=== PATIENT | male | born 1980 | race Caucasian/White ===

== ENCOUNTER 2020-03-09 21:52 | Emergency (ER) | payer SELFPAY ==
--- NOTE | 2020-03-09 22:15 | RAD REPORT ---
EXAM DESCRIPTION: RAD - Chest Single View - 03/09/2020 10:05 pm CLINICAL HISTORY: CHEST PAIN Chest pain. COMPARISON: Chest Pa And Lat (2 Views) dated 01/30/2019; Chest Pa And Lat (2 Views) dated 11/21/2017; C HEST SINGLE VIEW dated 10/20/2013; CHEST PA AND LAT 2 VIEW dated 05/12/2011CHEST SINGLE VIEW dated 07/07/2008 FINDINGS: Portable technique limits examination quality. The lungs are grossly clear. The heart is normal in size. No displaced fractures. IMPRESSION: No acute intrathoracic process suspected.
[2020-03-09 22:31] LABS: Absolute Lymphocytes (CBC) 3.2 K/uL (0.7-4.9); Basophils % 0.6 % (0-1.3); Hematocrit 50.1 % (39.6-49.0); MPV 8.9 fL (7.6-11.3); RBC Red Blood Cell Count 5.46 M/uL (4.33-5.43)
[2020-03-09] MEDS ORDERED: LORazepam 2 MG/ML VIAL ONE (22:34)
[2020-03-09 22:55] LABS: Protime INR 0.89
[2020-03-09 22:59] LABS: Barbiturates NEGATIVE (NEGATIVE); Benzodiazepines NEGATIVE (NEGATIVE); Cocaine NEGATIVE (NEGATIVE); METHAMPHETAM NEGATIVE (NEGATIVE); Methadone NEGATIVE (NEGATIVE); Opiates NEGATIVE (NEGATIVE); Phencyclidine NEGATIVE (NEGATIVE); THC Cannibis NEGATIVE (NEGATIVE)
[2020-03-09 23:02] LABS: ALT/SGPT 48 U/L (12-78); AST/SGOT 47 U/L (15-37); Alkaline Phosphatase 95 U/L (45-117); BUN Blood Urea Nitrogen 7 mg/dL (7-18); Bicarbonate 20 mmol/L (21-32); Bilirubin Direct 0.1 mg/dL (0-0.2); Bilirubin Total 0.4 mg/dL (0.2-1.0); Glucose Level 119 mg/dL (74-106); Magnesium 2.4 mg/dL (1.8-2.4); NT PRO-BNP 150 pg/mL (<125); Potassium 3.3 mmol/L (3.5-5.1); Protein, Total 7.4 g/dL (6.4-8.2); Sodium Level 145 mmol/L (136-145); Troponin (Emerg Dept Use Only) < 0.02 ng/mL (0.0-0.045)
--- NOTE | 2020-03-10 00:14 | ER ---
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 Coronavirus screen: Client denies travel out of the [place] in the last 14 days. At this time, the client does not indicate any symptoms associated with coronavirus-19. Ebola Screen: No symptoms or risks identified at this time. Initial Sepsis Screen: Does the patient meet any 2 criteria? No. Patient's initial sepsis screen is negative. Does the patient have a suspected source of infection? No. Patient's initial sepsis screen is negative. Risk Assessment: Do you want to hurt yourself or someone else? Patient reports no desire to harm self or others. Onset of symptoms was March 09, 2020 at 20:00. 21:58 Method Of Arrival: Wheelchair lp1 21:58 Acuity: KAYLEE 3 lp1 Historical: - Allergies: 22:00 No Known Allergies; lp1 - Home Meds: 22:00 None [Active]; lp1 - PMHx: 22:00 None; lp1 - PSHx: 22:00 Appendectomy; lp1 - Immunization history:: Adult Immunizations up to date. - Social history:: Smoking status: Patient reports the use of cigarette tobacco products, smokes one-half pack cigarettes per day, Patient uses alcohol, on a daily basis. claims drinking about a 6 pack/day. Screenin:00 Abuse screen: Denies threats or abuse. Denies injuries from another. Nutritional lp1 screening: No deficits noted. Tuberculosis screening: No symptoms or risk factors identified. 03/10 00:11 Fall Risk IV access (20 points). mg2 Assessment: 03/09 22:20 General: Appears in no apparent distress. comfortable, Behavior is calm, cooperative. mg2 Pain: Complains of pain in chest Pain does not radiate. Pain began gradually. Neuro: Level of Consciousness is awake, alert, obeys commands, Oriented to person, place, time, situation. Cardiovascular: Capillary refill < 3 seconds Patient's skin is warm and dry. Respiratory: Airway is patent Respiratory effort is even, unlabored, Respiratory pattern is regular, symmetrical. GI: No signs and/or symptoms were reported involving the gastrointestinal system. : No signs and/or symptoms were reported regarding the genitourinary system. EENT: No signs and/or symptoms were reported regarding the EENT system. Derm: Skin is intact, is healthy with good turgor, Skin is pink, warm \T\ dry. normal. Musculoskeletal: Circulation, motion, and sensation intact. Capillary refill < 3 seconds. 03/10 00:11 Reassessment: Patient and/or family updated on plan of care and expected duration. Pain ea level reassessed. Patient is alert, oriented x 3, equal unlabored respirations, skin warm/dry/pink. 00:19 Reassessment: Patient and/or family updated on plan of care and expected duration. Pain ea level reassessed. Patient is alert, oriented x 3, equal unlabored respirations, skin warm/dry/pink. Discharge instruction given to patient, verbalized the understanding of instruction. Pt left ED ambulatory tolerating well. Vital Signs: 03/09 21:58 BP 128 / 83; Pulse 98; Resp 18; Temp 98.9(O); Pulse Ox 95% on R/A; Weight 79.38 kg (R); lp1 Pain 9/10; 03/10 00:11 BP 106 / 63; Pulse 78; Resp 18; Pulse Ox 98% on R/A; mg2 ED Course: 03/09 21:53 Patient arrived in ED. fj1 21:54 Bon Ojeda PA is PHCP. jmm 21:54 Dejon Jauregui MD is Attending Physician. jmm 22:00 Triage completed. lp1 22:00 Arm band placed on right wrist. lp1 22:00 Patient maintains SpO2 saturation greater than 95% on room air. lp1 22:01 Patient has correct armband on for positive identification. security monitor on. Pulse lp1 ox on. NIBP on. 22:10 Inserted saline lock: 18 gauge in left wrist, using aseptic technique. Blood collected. ds4 22:38 Urine Drug Screen Sent. ds4 03/10 00:09 Laz Aragon, RN is Primary Nurse. mg2 00:11 No provider procedures requiring assistance completed. mg2 00:18 IV discontinued, intact, bleeding controlled, No redness/swelling at site. Pressure ea dressing applied. Administered Medications: 03/09 22:29 Drug: Ativan 0.5 mg Route: IVP; Site: left forearm; mg2 23:00 Follow up: Response: No adverse reaction ea Outcome: 03/10 00:13 Discharge ordered by . celena 00:20 Discharged to home ambulatory. ea 00:20 Condition: stable 00:20 Discharge instructions given to patient, Instructed on discharge instructions, follow up and referral plans. Demonstrated understanding of instructions, follow-up care. 00:22 Patient left the ED. ea Signatures: Bon Ojeda PA PA jmm Pena, Laura, RN RN lp1 Terence Martinez ds4 Ceci Wan RN RN ea Laz Aragon RN RN mg2 Henry Bowling fj1
--- NOTE | 2020-03-10 00:14 | EDPHYS ---
Physician Documentation [facility] Name: James Chaney Age: 39 yrs Sex: Male : 1980 Arrival Date: 03/09/2020 Time: 21:53 Bed 5 Private MD: ED Physician Dejon Jauregui HPI: 03/09 21:59 This 39 yrs old Male presents to ER via Unassigned with complaints of Chest jm Pain. 21:59 The patient or guardian reports chest pain that is located primarily in the substernal [facility] area. 22:08 The pain does not radiate. Associated signs and symptoms: Pertinent positives:. The [facility] chest pain is described as aching, sharp. Duration: The patient or guardian reports multiple episodes, that are intermittent. Modifying factors: The symptoms are alleviated by nothing. the symptoms are aggravated by nothing. This is a 39 year old male with no chronic medical conditions that presents to the ED with complaints of left sided chest pain for the past 3 days. Pain intensified 2 hours ago. . Historical: - Allergies: 22:00 No Known Allergies; lp1 - Home Meds: 22:00 None [Active]; lp1 - PMHx: 22:00 None; lp1 - PSHx: 22:00 Appendectomy; lp1 - Immunization history:: Adult Immunizations up to date. - Social history:: Smoking status: Patient reports the use of cigarette tobacco products, smokes one-half pack cigarettes per day, Patient uses alcohol, on a daily basis. claims drinking about a 6 pack/day. ROS: 22:08 Constitutional: Negative for fever, chills, and weight loss. jmm 22:08 Respiratory: Negative for shortness of breath, cough, wheezing, and pleuritic chest pain, Abdomen/GI: Negative for abdominal pain, nausea, vomiting, diarrhea, and constipation, Neuro: Negative for headache, weakness, numbness, tingling, and seizure. 22:08 Cardiovascular: Positive for chest pain. 22:08 All other systems are negative. Exam: 21:59 ECG was reviewed by the Attending Physician. jmm 22:08 Constitutional: This is a well developed, well nourished patient who is awake, alert, jmm and in no acute distress. Head/Face: atraumatic. Eyes: EOMI, no conjunctival erythema appreciated ENT: Moist Mucus Membranes Neck: Trachea midline, Supple Chest/axilla: Normal chest wall appearance and motion. Cardiovascular: Regular rate and rhythm. No edema appreciated Respiratory: Normal respirations, no respiratory distress appreciated Abdomen/GI: Non distended, soft Back: Normal ROM Skin: General appearance color normal MS/ Extremity: Moves all extremities, no obvious deformities appreciated, no edema noted to the lower extremities Neuro: Awake and alert, normal gait 22:08 Psych: Behavior/mood is anxious. Vital Signs: 21:58 BP 128 / 83; Pulse 98; Resp 18; Temp 98.9(O); Pulse Ox 95% on R/A; Weight 79.38 kg (R); lp1 Pain 04/10; 03/10 00:11 BP 106 / 63; Pulse 78; Resp 18; Pulse Ox 98% on R/A; mg2 MDM: 03/09 21:56 Patient medically screened. [facility] 03/10 00:07 Data reviewed: vital signs, nurses notes. Counseling: I had a detailed discussion with celena the patient and/or guardian regarding: the historical points, exam findings, and any diagnostic results supporting the discharge/admit diagnosis, lab results, radiology results, the need for outpatient follow up. ED course: HEART SCORE = 0. D-dimer negative. Patient is advised to follow up with pcp and otherwise given strict return precautions. Patient understood and agrees with the plan of care. . 03/09 21:55 Order name: Basic Metabolic Panel [facility] 03/09 21:55 Order name: CBC with Diff [facility] 03/09 21:55 Order name: LFT's [facility] 03/09 21:55 Order name: Magnesium [facility] 03/09 21:55 Order name: NT PRO-BNP [facility] 03/09 21:55 Order name: PT-INR [facility] 03/09 21:55 Order name: Troponin (emerg Dept Use Only) [facility] 03/09 22:13 Order name: ETOH Level [facility] 03/09 22:13 Order name: Urine Drug Screen [facility] 03/09 22:13 Order name: D-Dimer [facility] 03/09 22:33 Order name: CBC with Automated Diff; Complete Time: 22:57 [facility] 03/09 22:40 Order name: Urine Dipstick--Ancillary (enter results) 4 03/09 22:49 Order name: Alcohol Serum/Plasma; Complete Time: 22:57 EDMS 08/ 22:57 Order name: Protime (+INR); Complete Time: 22:58 EDMS 08/ 21:55 Order name: XRAY Chest (1 view) [facility] 08/ 21:55 Order name: EKG; Complete Time: 21:55 jmm 08/ 21:55 Order name: Cardiac monitoring; Complete Time: 22:16 m 08/ 21:55 Order name: EKG - Nurse/Tech; Complete Time: 22:16 m 08/ 21:55 Order name: IV Saline Lock; Complete Time: 22:16 m 08/ 21:55 Order name: Labs collected and sent; Complete Time: 22:16 m 08/ 21:55 Order name: O2 Per Protocol; Complete Time: 22:16 m 08/ 22:16 Order name: RAD; Complete Time: 22:22 EDMS 08/ 22:57 Order name: D-Dimer; Complete Time: 22:58 EDMS 08/ 22:59 Order name: Urine Drug Screen; Complete Time: 22:59 EDMS 08/ 23:02 Order name: Basic Metabolic Panel; Complete Time: 23:09 EDMS 08/ 23:02 Order name: Liver (Hepatic) Function; Complete Time: 23:09 EDMS 08/ 23:02 Order name: Troponin (Emerg Dept Use Only); Complete Time: 23:09 EDMS 08/ 23:02 Order name: NT PRO-BNP; Complete Time: 23:09 EDMS 08/ 23:02 Order name: Magnesium; Complete Time: 23:09 EDMS 03/09 21:55 Order name: O2 Sat Monitoring; Complete Time: 22:16 jmm EC/09 21:59 Rate is 95 beats/min. Rhythm is regular. QRS [place] is Normal. SC interval is normal. QRS jmm interval is normal. QT interval is normal. No Q waves. T waves are Normal. No ST changes noted. Reviewed by me. Administered Medications: 22:29 Drug: Ativan 0.5 mg Route: IVP; Site: left forearm; mg2 23:00 Follow up: Response: No adverse reaction ea Disposition: 03/10 11:03 Co-signature as Attending Physician, Dejon Jauregui MD I agree with the assessment and aliyah plan of care. Disposition: 03/10/20 00:13 Discharged to Home. Impression: Chest pain, unspecified. - Condition is Stable. - Discharge Instructions: Nonspecific Chest Pain. - Medication Reconciliation Form, Thank You Letter, Antibiotic Education, Prescription Opioid Use form. - Follow up: Private Physician; When: 2 - 3 days; Reason: Recheck today's complaints, Continuance of care, Re-evaluation by your physician. Signatures: Dispatcher [employer] EDMS Dejon Jauregui MD MD cha Mickail, Joel, PA PA jmm Pena, Laura, RN RN lp1 Ceci Wan RN RN Laz Christie RN RN mg2 Corrections: (The following items were deleted from the chart) 00:22 00:13 03/10/2020 00:13 Discharged to Home. Impression: Chest pain, unspecified. ea Condition is Stable. Forms are Medication Reconciliation Form, Thank You Letter, Antibiotic Education, Prescription Opioid Use. Follow up: Private Physician; When: 2 - 3 days; Reason: Recheck today's complaints, Continuance of care, Re-evaluation by your physician. celena
[2020-03-10 01:07] VITALS: TEMP 98.9
[2020-03-10 01:08] VITALS: BP 106/63; O2SAT 98
[2020-03-10 03:09] LABS: Urine Blood NEGATIVE (NEG); Urine Glucose NEGATIVE (NEG); Urine Protein NEGATIVE (NEG); Urine pH 5.5 (5.0-7.0)
== END 2020-03-10 00:22 | disposition home or self-care (01) ==
LOC: ER 21:52
DX: R07.9 Chest pain, unspecified (principal); F17.210 Nicotine dependence, cigarettes, uncomplicated
CPT/HCPCS: 36415; 71045; 80048; 80076; 80307; 80320; 81003; 83735; 83880; 84484; 85025; 85379; 85610; 93005; 96374; 99285

== ENCOUNTER 2020-08-09 07:49 | Emergency (ER) | payer SELFPAY ==
[2020-08-09] MEDS ORDERED: TETRACAINE HCL 0.5% 4ML OPTH ONE (08:39)
[2020-08-09] MEDS ORDERED: FLUORESCEIN SODIUM 1 MG/WRAP ONE ×2 (08:39→08:42)
--- NOTE | 2020-08-09 09:14 | ER ---
Nurse's Notes [facility] Name: James Chaney Age: 39 yrs Sex: Male : 1980 Arrival Date: 08/09/2020 Time: 07:51 Bed 19 Private MD: Diagnosis: Conjunctivitis;Foreign body in conjunctival sac, right eye Presentation: 08/09 08:18 Chief complaint: Patient states: "I just woke up to my right eye hurting real bad". Pt aa5 states "It feels like there is something in my eye". 08:18 Acuity: KAYLEE 4 aa5 08:18 Method Of Arrival: Ambulatory aa5 08:18 Coronavirus screen: Client denies travel out of the [place] in the last 14 days. At this aa5 time, the client does not indicate any symptoms associated with coronavirus-19. Ebola Screen: Patient negative for fever greater than or equal to 101.5 degrees Fahrenheit, and additional compatible Ebola Virus Disease symptoms. 08:18 Initial Sepsis Screen: Does the patient meet any 2 criteria? No. Patient's initial aa5 sepsis screen is negative. Does the patient have a suspected source of infection? No. Patient's initial sepsis screen is negative. Risk Assessment: Do you want to hurt yourself or someone else? Patient reports no desire to harm self or others. Onset of symptoms was August 2020. Historical: - Allergies: 08:20 No Known Allergies; aa5 - PMHx: 08:20 None; aa5 - PSHx: 08:20 Appendectomy; aa5 - Immunization history:: Adult Immunizations unknown. - Social history:: Smoking status: Patient reports the use of cigarette tobacco products. - Family history:: not pertinent. - Hospitalizations: : No recent hospitalization is reported. Screenin:20 Abuse screen: Denies threats or abuse. Nutritional screening: No deficits noted. aa5 Tuberculosis screening: No symptoms or risk factors identified. Fall Risk None identified. Assessment: 08:20 General: Appears uncomfortable, Behavior is cooperative. Pain: Complains of pain in aa5 right eye Pain currently is 10 out of 10 on a pain scale. Quality of pain is described as burning, stinging, Is continuous. Neuro: Level of Consciousness is awake, alert, obeys commands, Oriented to person, place, time, situation. Cardiovascular: Heart tones S1 S2 present Rhythm is regular. Respiratory: Airway is patent Respiratory effort is even, unlabored, Respiratory pattern is regular, symmetrical. GI: No signs and/or symptoms were reported involving the gastrointestinal system. : No signs and/or symptoms were reported regarding the genitourinary system. EENT: Eyes are tearing on right eye Sclera/Cornea are reddened in right eye Reports pain in right eye. Derm: Skin is pink, warm \\T\\ dry. Musculoskeletal: Range of motion: intact in all extremities. 09:05 Reassessment: Patient is alert, oriented x 3, equal unlabored respirations, skin aa5 warm/dry/pink. Patient states feeling better. Patient states symptoms have improved. 09:40 Reassessment: Patient is alert, oriented x 3, equal unlabored respirations, skin aa5 warm/dry/pink. Vital Signs: 08:20 BP 127 / 88; Pulse 92; Resp 16 S; Temp 98.2(O); Pulse Ox 97% on R/A; Weight 84.82 kg aa5 (R); Height 5 ft. 6 in. (167.64 cm) (R); Pain 10/10; 08:20 Body Mass Index 30.18 (84.82 kg, 167.64 cm) aa5 ED Course: 07:51 Patient arrived in ED. ag5 08:18 Arm band placed on. aa5 08:18 Patient has correct armband on for positive identification. Bed in low position. Call aa5 light in reach. Side rails up X 1. 08:19 Lakisha Canales, RN is Primary Nurse. aa5 08:21 Sunny Vaughan MD is Attending Physician. rn 08:31 Triage completed. aa5 08:40 Assist provider with eye exam of right eye. using fluorescein stain, Performed by Sunny Vaughan MD Patient tolerated poorly. 09:00 Eye irrigation of right eye with 150mls of saline Patient tolerated poorly. aa5 09:40 Patient did not have IV access during this emergency room visit. aa5 Administered Medications: 08:29 Drug: Tetracaine Drops 0.5 % 1 drops {Note: administered by Dr. Vaughan.} Route: aa5 Ophthalmic; Site: right eye; 08:40 Drug: Fluorescein Strip 1 strip {Note: completed by .} Route: Ophthalmic; Site: right aa5 eye; Outcome: 09:14 Discharge ordered by . rn 09:40 Discharged to home ambulatory. saleem 09:40 Condition: improved 09:40 Discharge instructions given to patient, Instructed on discharge instructions, follow up and referral plans. medication usage, Demonstrated understanding of instructions, follow-up care, medications, Prescriptions given X 1. 09:46 Patient left the ED. aa5 Signatures: Sunny Vaughan MD MD rn Calderon, Audri, RN RN aa5 [place], Ajare [facility] Corrections: (The following items were deleted from the chart) 10:16 08:40 Assist provider with eye exam of left eye. using fluorescein stain, Performed by aa5 Sunny Vaughan MD Patient tolerated poorly. aa5 10:16 09:00 Eye irrigation of left eye with 150mls of saline Patient tolerated poorly. aa5 saleem
--- NOTE | 2020-08-09 09:15 | EDPHYS ---
Physician Documentation [facility] Name: James Chaney Age: 39 yrs Sex: Male : 1980 Arrival Date: 08/09/2020 Time: 07:51 Bed 19 Private MD: ED Physician Sunny Vaughan HPI: 08/09 09:01 This 39 yrs old Male presents to ER via Ambulatory with complaints of Redness rn of Eye, Eye Pain. 09:01 The patient is experiencing foreign body sensation, pain, redness, tearing. Onset: The rn symptoms/episode began/occurred this morning. Duration: the symptoms are continuous. Aggravated by nothing. Alleviated by nothing. 09:06 Associated signs and symptoms: Pertinent negatives: fever, headache. Patient does not rn utilize any form of vision correction. Severity of symptoms: At their worst the symptoms were moderate in the emergency department the symptoms are unchanged. The patient has not experienced similar symptoms in the past. 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 . Historical: - Allergies: 08:20 No Known Allergies; aa5 - PMHx: 08:20 None; aa5 - PSHx: 08:20 Appendectomy; aa5 - Immunization history:: Adult Immunizations unknown. - Social history:: Smoking status: Patient reports the use of cigarette tobacco products. - Family history:: not pertinent. - Hospitalizations: : No recent hospitalization is reported. ROS: 09:06 Constitutional: Negative for fever, chills, and weight loss, Eyes: + pain, redness, overnight babysitter ENT: Negative for injury, pain, and discharge, Neck: Negative for injury, pain, and swelling, Neuro: Negative for headache, weakness, numbness, tingling, and seizure. Exam: 09:10 Constitutional: This is a well developed, well nourished patient who is awake, alert, rn rubbing right eye Eyes: Pupils equal round and reactive to light, extra-ocular motions intact. + right eye with clear drainage, no fluorescein uptake, small white foreign body seen upon inversion of upper lid, removed with qtip and irrigation. Neg seidels. No ulceration or dendritic lesions. Periorbital areas with no swelling, redness, or edema. Vital Signs: 08:20 BP 127 / 88; Pulse 92; Resp 16 S; Temp 98.2(O); Pulse Ox 97% on R/A; Weight 84.82 kg aa5 (R); Height 5 ft. 6 in. (167.64 cm) (R); Pain 10/10; 08:20 Body Mass Index 30.18 (84.82 kg, 167.64 cm) aa5 MDM: 08:21 Patient medically screened. rn 09:10 Differential diagnosis: Corneal abrasion of Corneal ulcer of Foreign body in Data rn reviewed: vital signs, nurses notes, and as a result, I will discharge patient. Counseling: I had a detailed discussion with the patient and/or guardian regarding: the historical points, exam findings, and any diagnostic results supporting the discharge/admit diagnosis, the need for outpatient follow up, to return to the emergency department if symptoms worsen or persist or if there are any questions or concerns that arise at home. Response to treatment: the patient's symptoms have mildly improved after treatment, and as a result, I will discharge patient. Special discussion: I discussed with the patient/guardian in detail that at this point there is no indication for admission to the hospital. It is understood, however, that if the symptoms persist or worsen the patient needs to return immediately for re-evaluation. Based on the history and exam findings, there is no indication for further emergent testing or inpatient evaluation. I discussed with the patient/guardian the need to see the opthamologist for further evaluation of the symptoms. ED course: Pt states feels a little better after irrigation, will dc home with abx drops and ophtho f/u. . 08/09 08:29 Order name: Eye Tray; Complete Time: 08:29 aa5 Administered Medications: 08:29 Drug: Tetracaine Drops 0.5 % 1 drops {Note: administered by Dr. Vaughan.} Route: aa5 Ophthalmic; Site: right eye; 08:40 Drug: Fluorescein Strip 1 strip {Note: completed by .} Route: Ophthalmic; Site: right aa5 eye; Disposition: 08/09/20 09:14 Discharged to Home. Impression: Conjunctivitis, Foreign body in conjunctival sac, right eye. - Condition is Stable. - Discharge Instructions: Bacterial Conjunctivitis, Eye Foreign Body, Viral Conjunctivitis. - Prescriptions for Vigamox 0.5 % Ophthalmic Drops - instill 1 drop by OPHTHALMIC route every 8 hours for 7 days; 5 milliliter. - Medication Reconciliation Form, Thank You Letter, Antibiotic Education, Prescription Opioid Use form. - Follow up: Private Physician; When: As needed; Reason: Recheck today's complaints, Re-evaluation by your physician. - Problem is new. - Symptoms have improved. Signatures: Sunny Vaughan MD MD rn Calderon, Audri, RN RN aa5 Corrections: (The following items were deleted from the chart) 09:10 09:06 Constitutional: Negative for fever, chills, and weight loss, Eyes: + pain, rn redness, discharge ENT: Negative for injury, pain, and discharge, Neck: Negative for injury, pain, and swelling, Neuro: Negative for headache, weakness, numbness, tingling, and seizure, rn 09:46 09:14 08/09/2020 09:14 Discharged to Home. Impression: Conjunctivitis; Foreign body in aa5 conjunctival sac, right eye. Condition is Stable. Forms are Medication Reconciliation Form, Thank You Letter, Antibiotic Education, Prescription Opioid Use. Follow up: Private Physician; When: As needed; Reason: Recheck today's complaints, Re-evaluation by your physician. Problem is new. Symptoms have improved. rn
[2020-08-09 09:50] VITALS: BP 127/88; TEMP 98.2; O2SAT 97
== END 2020-08-09 09:46 | disposition home or self-care (01) ==
LOC: ER 07:49
DX: T15.11XA Foreign body in conjunctival sac, right eye, initial encounter (principal); H10.9 Unspecified conjunctivitis; F17.210 Nicotine dependence, cigarettes, uncomplicated
CPT/HCPCS: 99284